=== PATIENT | male | born 2000 | race Caucasian/White ===

== ENCOUNTER 2024-11-05 02:49 | Emergency (ER) | payer SELFPAY ==
[~2024-11-05] VITALS: Ht 175.3 cm; Wt 81.8 kg
[2024-11-05 03:37] LABS: HEMATOCRIT 40.5 % (42.0-52.0); HEMOGLOBIN 13.5 g/dl (13.5-17.5); MEAN CORPUSCULAR HEMOGLOBIN 27.6 pg (27.0-33.0); MEAN CORPUSCULAR HGB CONC 33.3 g/dl (32.0-36.5); MEAN CORPUSCULAR VOLUME 82.8 fl (80.0-96.0); PLATELET COUNT, AUTOMATED 300 10^3/uL (150-450); RED BLOOD COUNT 4.89 10^6/uL (4.30-6.10); WHITE BLOOD COUNT 9.3 10^3/uL (4.0-10.0)
[2024-11-05 03:53] LABS: AMPHETAMINES LEVEL URINE NEGATIVE (NEGATIVE); BARBITURATES URINE NEGATIVE (NEGATIVE); BENZODIAZEPINES URINE NEGATIVE (NEGATIVE); CANNABINOIDS URINE NEGATIVE (NEGATIVE); COCAINE METABOLITE URINE NEGATIVE (NEGATIVE); METHADONE URINE NEGATIVE (NEGATIVE); OPIATES URINE NEGATIVE (NEGATIVE); PHENCYCLIDINE URINE NEGATIVE (NEGATIVE)
[2024-11-05 03:56] LABS: ETHYL ALCOHOL (ETHANOL) < 0.003 % (0.000-0.010)
[2024-11-05 03:57] LABS: ALBUMIN 3.9 G/DL (3.2-5.2); ALKALINE PHOSPHATASE 91 U/L (40-129); ALT/SGPT 18 U/L (7.0-40); AST/SGOT 13 U/L (<34); BILIRUBIN,DIRECT 0.1 MG/DL (<0.4); BILIRUBIN,TOTAL 0.4 MG/DL (0.3-1.2); BLOOD UREA NITROGEN 14 MG/DL (9-23); CALCIUM LEVEL 9.3 MG/DL (8.5-10.1); CARBON DIOXIDE LEVEL 25 MMOL/L (20-31); CHLORIDE LEVEL 109 MMOL/L (98-107); GLOMERULAR FILTRATION RATE > 60.0 (>60); GLUCOSE, FASTING 94 MG/DL (60-100); POTASSIUM SERUM 4.1 MMOL/L (3.5-5.1); SALICYLATE LEVEL < 3.0 MG/DL (<30); SODIUM LEVEL 143 MMOL/L (136-145); TOTAL PROTEIN 6.5 G/DL (5.7-8.2)
[2024-11-05 04:00] LABS: THYROID STIMULATING HORMONE 4.973 uIU/ML (0.55-4.78)
[2024-11-05 08:03] VITALS: BP 120/68; TEMP 97.9; O2SAT 100
[2024-11-05] MEDS ORDERED: HOME MED LIST COMPLETE! XX SCH (09:50)
== END 2024-11-05 12:35 | disposition home or self-care (01) ==
LOC: M ED 02:49
DX: F43.20 Adjustment disorder, unspecified (principal); Z88.0 Allergy status to penicillin; Z88.2 Allergy status to sulfonamides

== ENCOUNTER 2024-11-05 19:18 | Emergency (ER) | payer SELFPAY ==
[~2024-11-05] VITALS: Ht 177.8 cm; Wt 81.8 kg
[2024-11-06 00:19] LABS: BASO % 0.3 % (0.0-1.0); EOS # 0.1 10^3/uL (0.0-0.5); EOS % 1.1 % (0.0-3.0); HEMATOCRIT 39.9 % (42.0-52.0); HEMOGLOBIN 13.6 g/dl (13.5-17.5); LYMPH # 2.5 10^3/uL (1.5-5.0); LYMPH % 28.1 % (24.0-44.0); MEAN CORPUSCULAR HGB CONC 34.1 g/dl (32.0-36.5); MEAN CORPUSCULAR VOLUME 82.1 fl (80.0-96.0); MONO # 0.6 10^3/uL (0.0-0.8); MONO % 6.8 % (2.0-8.0); NEUTROPHILS # 5.6 10^3/uL (1.5-8.5); NEUTROPHILS % 63.6 % (36.0-66.0); PLATELET COUNT, AUTOMATED 300 10^3/uL (150-450); RED BLOOD COUNT 4.86 10^6/uL (4.30-6.10); WHITE BLOOD COUNT 8.8 10^3/uL (4.0-10.0)
[2024-11-06 00:52] LABS: CK-MB VALUE MASS < 1.0 NG/ML (<3.6)
[2024-11-06 00:54] LABS: ALKALINE PHOSPHATASE 92 U/L (40-129); ALT/SGPT 18 U/L (7.0-40); AST/SGOT 14 U/L (<34); BILIRUBIN,TOTAL 0.4 MG/DL (0.3-1.2); BLOOD UREA NITROGEN 14 MG/DL (9-23); CALCIUM LEVEL 9.1 MG/DL (8.5-10.1); CARBON DIOXIDE LEVEL 27 MMOL/L (20-31); CHLORIDE LEVEL 109 MMOL/L (98-107); CPK CREATINE PHOSPHOKINASE 75 U/L (46-171); CREATININE FOR GFR 0.97 MG/DL (0.70-1.30); GLOMERULAR FILTRATION RATE > 60.0 (>60); GLUCOSE, FASTING 95 MG/DL (60-100); MB/CK RELATIVE INDEX 1.33 (< OR =4); SODIUM LEVEL 143 MMOL/L (136-145); TOTAL PROTEIN 6.6 G/DL (5.7-8.2)
[2024-11-06 03:48] LABS: ETHYL ALCOHOL (ETHANOL) < 0.003 % (0.000-0.010)
[2024-11-06 03:49] LABS: SALICYLATE LEVEL < 3.0 MG/DL (<30)
[2024-11-06 03:52] LABS: THYROID STIMULATING HORMONE 3.671 uIU/ML (0.55-4.78)
[2024-11-06] MEDS ORDERED: HOME MED LIST COMPLETE! XX SCH (04:55)
[2024-11-06 08:11] LABS: AMPHETAMINES LEVEL URINE NEGATIVE (NEGATIVE); BARBITURATES URINE NEGATIVE (NEGATIVE); BENZODIAZEPINES URINE NEGATIVE (NEGATIVE); CANNABINOIDS URINE NEGATIVE (NEGATIVE); COCAINE METABOLITE URINE NEGATIVE (NEGATIVE); METHADONE URINE NEGATIVE (NEGATIVE); OPIATES URINE NEGATIVE (NEGATIVE); PHENCYCLIDINE URINE NEGATIVE (NEGATIVE)
[2024-11-06 10:46] VITALS: BP 128/75; TEMP 97; O2SAT 100
[2024-11-07] MEDS ORDERED: ZITHTAB PO (20:29)
== END 2024-11-06 11:07 | disposition home or self-care (01) ==
LOC: EDBD 19:18 → EDSEX 19:18 → M ED 19:18
DX: R45.850 Homicidal ideations (principal); F43.20 Adjustment disorder, unspecified; Z59.00 Homelessness unspecified; Z91.51 Personal history of suicidal behavior; F20.9 Schizophrenia, unspecified; F31.9 Bipolar disorder, unspecified; F90.9 Attention-deficit hyperactivity disorder, unspecified type; F43.10 Post-traumatic stress disorder, unspecified; F32.A Depression, unspecified; F17.200 Nicotine dependence, unspecified, uncomplicated; Z88.0 Allergy status to penicillin; Z88.2 Allergy status to sulfonamides

== ENCOUNTER 2024-11-07 17:26 | Emergency (ER) | payer SELFPAY ==
[~2024-11-07] VITALS: Ht 177.8 cm; Wt 88.0 kg
[2024-11-07] MEDS ORDERED: ZITHTAB PO (20:29)
[2024-11-07 20:34] VITALS: BP 103/87; TEMP 98.8; O2SAT 99
[2024-11-07] MEDS: AZITHROMYCIN 250MG TABLET PO ONE (20:53)
== END 2024-11-07 21:10 | disposition home or self-care (01) ==
LOC: EDBD 17:26 → M ED 17:26
DX: J02.0 Streptococcal pharyngitis (principal); I10 Essential (primary) hypertension; F31.9 Bipolar disorder, unspecified; F20.9 Schizophrenia, unspecified; F90.9 Attention-deficit hyperactivity disorder, unspecified type; F43.10 Post-traumatic stress disorder, unspecified; F17.200 Nicotine dependence, unspecified, uncomplicated; F17.290 Nicotine dependence, other tobacco product, uncomplicated; Z88.0 Allergy status to penicillin; Z88.2 Allergy status to sulfonamides

== ENCOUNTER 2024-11-08 01:17 | Emergency (ER) | payer SELFPAY ==
[~2024-11-08] VITALS: Ht 177.8 cm; Wt 87.9 kg
[~2024-11-08 01:17] MED LIST: ZITHTAB PO
[2024-11-08 01:20] VITALS: BP 152/111; TEMP 98.2; O2SAT 100
== END 2024-11-08 06:15 | disposition left against medical advice (07) ==
LOC: M ED 01:17
DX: Z53.21 Procedure and treatment not carried out due to patient leaving prior to being seen by health care provider (principal)

== ENCOUNTER 2024-12-09 18:17 | Emergency (ER) | payer SELFPAY ==
[~2024-12-09] VITALS: Ht 177.8 cm; Wt 90.2 kg
[2024-12-09 18:22] VITALS: BP 141/95; TEMP 98; O2SAT 100
== END 2024-12-09 21:24 | disposition left against medical advice (07) ==
LOC: M ED 18:17 → EDSEX 18:17 → EDBD 18:17 → M ED 21:24
DX: Z53.21 Procedure and treatment not carried out due to patient leaving prior to being seen by health care provider (principal)

== ENCOUNTER 2024-12-12 19:53 | Inpatient (IN) | payer SELFPAY ==
[~2024-12-12] VITALS: Ht 177.8 cm; Wt 81.6 kg
[2024-12-12] MEDS: NS (Normal Saline) 0.9% 1,000 ML IV ONE (20:28)
[2024-12-12 20:41] LABS: BASO % 0.6 % (0.0-1.0); EOS # 0.1 10^3/uL (0.0-0.5); EOS % 1.1 % (0.0-3.0); HEMATOCRIT 37.6 % (42.0-52.0); HEMOGLOBIN 12.1 g/dl (13.5-17.5); LYMPH # 1.6 10^3/uL (1.5-5.0); LYMPH % 25.1 % (24.0-44.0); MEAN CORPUSCULAR HEMOGLOBIN 26.6 pg (27.0-33.0); MEAN CORPUSCULAR HGB CONC 32.2 g/dl (32.0-36.5); MEAN CORPUSCULAR VOLUME 82.6 fl (80.0-96.0); MONO # 0.5 10^3/uL (0.0-0.8); MONO % 7.5 % (2.0-8.0); NEUTROPHILS # 4.1 10^3/uL (1.5-8.5); NEUTROPHILS % 65.4 % (36.0-66.0); PLATELET COUNT, AUTOMATED 274 10^3/uL (150-450); RED BLOOD COUNT 4.55 10^6/uL (4.30-6.10); WHITE BLOOD COUNT 6.3 10^3/uL (4.0-10.0)
[2024-12-12 21:01] LABS: ETHYL ALCOHOL (ETHANOL) < 0.003 % (0.000-0.010)
[2024-12-12 21:02] LABS: VALPROIC ACID (DEPAKOTE) < 3.0 UG/ML (50.0-100.0)
[2024-12-12 21:03] LABS: ALBUMIN 3.7 G/DL (3.2-5.2); ALKALINE PHOSPHATASE 80 U/L (40-129); ALT/SGPT 26 U/L (7.0-40); AST/SGOT 20 U/L (<34); BILIRUBIN,DIRECT 0.1 MG/DL (<0.4); BILIRUBIN,TOTAL 0.3 MG/DL (0.3-1.2); BLOOD UREA NITROGEN 8 MG/DL (9-23); CALCIUM LEVEL 8.9 MG/DL (8.5-10.1); CARBON DIOXIDE LEVEL 29 MMOL/L (20-31); CHLORIDE LEVEL 105 MMOL/L (98-107); CREATININE FOR GFR 0.84 MG/DL (0.70-1.30); GLOMERULAR FILTRATION RATE > 60.0 (>60); GLUCOSE, FASTING 110 MG/DL (60-100); POTASSIUM SERUM 4.1 MMOL/L (3.5-5.1); SALICYLATE LEVEL < 3.0 MG/DL (<30); SODIUM LEVEL 143 MMOL/L (136-145); TOTAL PROTEIN 6.4 G/DL (5.7-8.2)
[2024-12-12 21:04] LABS: THYROID STIMULATING HORMONE 3.384 uIU/ML (0.55-4.78)
[2024-12-12 21:13] LABS: CPK CREATINE PHOSPHOKINASE 94 U/L (46-171)
[2024-12-12 22:29] LABS: AMPHETAMINES LEVEL URINE NEGATIVE (NEGATIVE)
[2024-12-12 22:30] LABS: BARBITURATES URINE NEGATIVE (NEGATIVE); BENZODIAZEPINES URINE NEGATIVE (NEGATIVE); CANNABINOIDS URINE NEGATIVE (NEGATIVE); COCAINE METABOLITE URINE NEGATIVE (NEGATIVE); METHADONE URINE NEGATIVE (NEGATIVE); OPIATES URINE NEGATIVE (NEGATIVE); PHENCYCLIDINE URINE NEGATIVE (NEGATIVE)
[2024-12-13] MEDS ORDERED: HOME MED LIST COMPLETE! XX SCH (13:00)
[2024-12-13 17:24] VITALS: BP 117/60; TEMP 97.1
[2024-12-13] MEDS ORDERED: MAALOX 30 ML SUSP *UDC PO PRN (20:40)
[2024-12-13] MEDS: traZODone 50 MG TAB PO PRN (20:59)
[2024-12-13] MEDS: diphenhydrAMINE 25MG CAP PO PRN (20:59)
[2024-12-13 21:00] VITALS: BP 124/74
[2024-12-14 06:52] VITALS: BP 116/56; TEMP 98; O2SAT 100
[2024-12-14] MEDS: ACETAMINOPHEN 325 MG TAB PO PRN (08:42)
[2024-12-14] MEDS: ESCITALOPRAM OXALATE 10 MG TAB (LEXAPRO) PO SCH (11:52)
[2024-12-14] MEDS: NICOTINE 21MG/24HR 1 EA TRANSDERMAL TD SCH (11:54)
[2024-12-14 17:28] VITALS: BP 122/64; TEMP 98.3; O2SAT 100
[2024-12-14 19:25] VITALS: BP 121/71; TEMP 97.9; O2SAT 96
[2024-12-14 20:33] LABS: BASO % 0.5 % (0.0-1.0); EOS # 0.1 10^3/uL (0.0-0.5); HEMATOCRIT 36.8 % (42.0-52.0); HEMOGLOBIN 12.1 g/dl (13.5-17.5); LYMPH # 1.9 10^3/uL (1.5-5.0); LYMPH % 31.4 % (24.0-44.0); MEAN CORPUSCULAR HEMOGLOBIN 27.1 pg (27.0-33.0); MEAN CORPUSCULAR HGB CONC 32.9 g/dl (32.0-36.5); MEAN CORPUSCULAR VOLUME 82.5 fl (80.0-96.0); MONO # 0.5 10^3/uL (0.0-0.8); MONO % 8.3 % (2.0-8.0); NEUTROPHILS # 3.5 10^3/uL (1.5-8.5); NEUTROPHILS % 57.6 % (36.0-66.0); PLATELET COUNT, AUTOMATED 256 10^3/uL (150-450); RED BLOOD COUNT 4.46 10^6/uL (4.30-6.10); WHITE BLOOD COUNT 6.1 10^3/uL (4.0-10.0)
[2024-12-14 20:50] LABS: ERYTHROCYTE SEDIMENTATION RATE < 1 mm/hr (0-15)
[2024-12-14 20:55] LABS: C REACTIVE PROTEIN QUANTITATIV < 0.50 MG/DL (<1.0)
[2024-12-14 21:46] LABS: ALBUMIN 3.5 G/DL (3.2-5.2); ALKALINE PHOSPHATASE 79 U/L (40-129); ALT/SGPT 22 U/L (7.0-40); AST/SGOT 13 U/L (<34); BILIRUBIN,TOTAL 0.2 MG/DL (0.3-1.2); BLOOD UREA NITROGEN 9 MG/DL (9-23); CALCIUM LEVEL 8.8 MG/DL (8.5-10.1); CARBON DIOXIDE LEVEL 31 MMOL/L (20-31); CHLORIDE LEVEL 107 MMOL/L (98-107); CREATININE FOR GFR 0.99 MG/DL (0.70-1.30); GLOMERULAR FILTRATION RATE > 60.0 (>60); GLUCOSE, FASTING 90 MG/DL (60-100); MAGNESIUM LEVEL 1.7 MG/DL (1.8-2.4); POTASSIUM SERUM 4.5 MMOL/L (3.5-5.1); SODIUM LEVEL 145 MMOL/L (136-145)
[2024-12-15] MEDS: DOCUSATE SODIUM 100MG CAPSULE PO SCH (03:51)
[2024-12-15] MEDS: MOM 30ML SUSPENSION UDC PO PRN (03:52)
[2024-12-15 06:41] VITALS: BP 107/98; TEMP 97.4; O2SAT 97
[2024-12-15 15:54] VITALS: BP 124/66; TEMP 98; O2SAT 99
[2024-12-16 06:23] VITALS: BP 107/67; TEMP 96.9; O2SAT 100
[2024-12-16 15:52] VITALS: BP 124/78; TEMP 98.1; O2SAT 97
[2024-12-16] MEDS: IBUPROFEN 400MG TAB PO PRN (21:03)
[2024-12-17 06:46] VITALS: BP 107/58; TEMP 97.3; O2SAT 99
[2024-12-17] MEDS ORDERED: LEXA1TAB PO (11:53)
[2024-12-17] MEDS ORDERED: TRAZ-252 PO (11:53)
== END 2024-12-17 13:00 | disposition home or self-care (01) | DRG 754 ==
LOC: M ED 19:53 → EDBD 19:53 → M ED INP 12-13 14:43 → M PSY 12-13 17:18
PROVIDERS: ADMIT Psychiatry & Neurology Psychiatry; ATTEND Psychiatry & Neurology Psychiatry
DX: F32.9 Major depressive disorder, single episode, unspecified (principal); R45.850 Homicidal ideations; Z59.01 Sheltered homelessness; F41.1 Generalized anxiety disorder; Z56.0 Unemployment, unspecified; F17.200 Nicotine dependence, unspecified, uncomplicated; Z91.51 Personal history of suicidal behavior; Z88.0 Allergy status to penicillin; Z88.2 Allergy status to sulfonamides; Z90.49 Acquired absence of other specified parts of digestive tract; R10.9 Unspecified abdominal pain

== ENCOUNTER 2024-12-18 19:52 | Emergency (ER) | payer SELFPAY ==
[~2024-12-18] VITALS: Ht 177.8 cm; Wt 90.4 kg
[~2024-12-18 19:52] MED LIST changes: +LEXA1TAB PO; +TRAZ-252 PO
[2024-12-19 09:21] VITALS: BP 137/82; TEMP 96.9; O2SAT 98
== END 2024-12-19 09:25 | disposition home or self-care (01) ==
LOC: M ED 12-19 08:00
DX: F22 Delusional disorders (principal); Z59.00 Homelessness unspecified; Z63.79 Other stressful life events affecting family and household; Z88.0 Allergy status to penicillin; Z88.2 Allergy status to sulfonamides; Z79.899 Other long term (current) drug therapy

== ENCOUNTER 2024-12-27 08:20 | Observation (INO) | payer SELFPAY ==
[~2024-12-27] VITALS: Ht 177.8 cm; Wt 82.9 kg
[2024-12-27 08:42] LABS: BASO % 0.5 % (0.0-1.0); EOS # 0.1 10^3/uL (0.0-0.5); EOS % 1.6 % (0.0-3.0); HEMATOCRIT 42.9 % (42.0-52.0); HEMOGLOBIN 14.2 g/dl (13.5-17.5); LYMPH % 26.2 % (24.0-44.0); MEAN CORPUSCULAR HEMOGLOBIN 26.5 pg (27.0-33.0); MEAN CORPUSCULAR HGB CONC 33.1 g/dl (32.0-36.5); MONO # 0.7 10^3/uL (0.0-0.8); MONO % 8.6 % (2.0-8.0); NEUTROPHILS # 4.8 10^3/uL (1.5-8.5); NEUTROPHILS % 62.8 % (36.0-66.0); PLATELET COUNT, AUTOMATED 269 10^3/uL (150-450); RED BLOOD COUNT 5.36 10^6/uL (4.30-6.10); WHITE BLOOD COUNT 7.6 10^3/uL (4.0-10.0)
[2024-12-27] MEDS: CHARCOAL ACTIVATED LIQUID 25GM/120ML BTL PO ONE (08:47)
[2024-12-27 09:12] LABS: ETHYL ALCOHOL (ETHANOL) 0.004 % (0.000-0.010)
[2024-12-27 09:14] LABS: ALKALINE PHOSPHATASE 78 U/L (40-129); ALT/SGPT 18 U/L (7.0-40); AST/SGOT 20 U/L (<34); BILIRUBIN,DIRECT 0.1 MG/DL (<0.4); BILIRUBIN,TOTAL 0.4 MG/DL (0.3-1.2); BLOOD UREA NITROGEN 15 MG/DL (9-23); CALCIUM LEVEL 9.2 MG/DL (8.5-10.1); CARBON DIOXIDE LEVEL 22 MMOL/L (20-31); CHLORIDE LEVEL 109 MMOL/L (98-107); GLOMERULAR FILTRATION RATE > 60.0 (>60); GLUCOSE, FASTING 103 MG/DL (60-100); SALICYLATE LEVEL < 3.0 MG/DL (<30); SODIUM LEVEL 143 MMOL/L (136-145); TOTAL PROTEIN 6.8 G/DL (5.7-8.2)
[2024-12-27 09:16] LABS: THYROID STIMULATING HORMONE 2.727 uIU/ML (0.55-4.78)
[2024-12-27 09:32] LABS: CPK CREATINE PHOSPHOKINASE 99 U/L (46-171)
[2024-12-27 14:00] VITALS: BP 132/92; TEMP 98.6; O2SAT 100
[2024-12-27] MEDS ORDERED: LEXA1TAB PO (15:52)
[2024-12-27] MEDS ORDERED: TRAZ-186 PO (15:52)
[2024-12-27] MEDS ORDERED: HOME MED LIST COMPLETE! XX SCH (15:55)
[2024-12-27 20:00] VITALS: BP 137/73; TEMP 97.6; O2SAT 97
[2024-12-28 04:00] VITALS: BP 117/65; TEMP 97.4; O2SAT 96
[2024-12-28] MEDS: ENOXAPARIN 40MG/0.4ML SYRINGE (J1650 PER 10MG) SC SCH (09:00)
[2024-12-28 12:01] VITALS: BP 135/65; TEMP 98.6; O2SAT 100
== END 2024-12-28 14:07 ==
LOC: M ED 08:20 → EDBD 08:20 → M ED INP 08:21 → M MSPAV 13:51
PROVIDERS: ADMIT Student in an Organized Health Care Education/Training Program; ATTEND Student in an Organized Health Care Education/Training Program
DX: R45.851 Suicidal ideations (principal); T43.222A Poisoning by selective serotonin reuptake inhibitors, intentional self-harm, initial encounter; F32.A Depression, unspecified; F41.9 Anxiety disorder, unspecified; Z79.899 Other long term (current) drug therapy; Z88.0 Allergy status to penicillin; Z88.2 Allergy status to sulfonamides

== ENCOUNTER 2024-12-28 13:09 | Inpatient (IN) | payer SELFPAY ==
[~2024-12-28] VITALS: Ht 177.8 cm; Wt 79.5 kg
[~2024-12-28 13:09] MED LIST changes: +TRAZ-186 PO
[2024-12-28] MEDS ORDERED: IBUPROFEN 400MG TAB PO PRN (13:35)
[2024-12-28] MEDS ORDERED: diphenhydrAMINE 25MG CAP PO PRN (13:35)
[2024-12-28] MEDS ORDERED: MOM 30ML SUSPENSION UDC PO PRN (13:35)
[2024-12-28] MEDS ORDERED: OLANZapine ORAL DISINTEGRATING TAB 5MG PO PRN (13:35)
[2024-12-28] MEDS ORDERED: MAALOX 30 ML SUSP *UDC PO PRN (13:35)
[2024-12-28 14:10] VITALS: BP 120/80; TEMP 97.4; O2SAT 98
[2024-12-28] MEDS: traZODone 50 MG TAB PO PRN (20:14)
[2024-12-29 06:31] VITALS: BP 106/70; TEMP 97.2; O2SAT 98
[2024-12-29] MEDS ORDERED: HOME MED LIST COMPLETE! XX SCH (10:20)
[2024-12-30 06:47] VITALS: BP 108/72; TEMP 97.9; O2SAT 100
[2024-12-30] MEDS: ACETAMINOPHEN 325 MG TAB PO PRN (07:30)
[2024-12-30] MEDS: FLUoxetine 20MG CAP PO SCH (10:41)
[2024-12-30 15:33] VITALS: BP 117/75; TEMP 98.1; O2SAT 99
[2024-12-31 06:35] VITALS: BP 105/53; TEMP 97.3; O2SAT 96
[2024-12-31] MEDS: NICOTINE 14 MG/24 HR TRANSDERMAL TD SCH (11:41)
[2024-12-31 17:22] VITALS: BP 141/79; TEMP 97.8; O2SAT 99
[2025-01-01 07:03] VITALS: BP 140/76; TEMP 97.5; O2SAT 98
[2025-01-01] MEDS ORDERED: FLUO-365 PO (07:36)
[2025-01-01] MEDS ORDERED: HYDR-3363 PO (07:36)
== END 2025-01-01 13:35 | disposition home or self-care (01) | DRG 751 ==
LOC: M PSY 14:16
PROVIDERS: ADMIT Psychiatry & Neurology Psychiatry; ATTEND Psychiatry & Neurology Psychiatry
DX: F33.1 Major depressive disorder, recurrent, moderate (principal); F41.9 Anxiety disorder, unspecified; F60.89 Other specific personality disorders; Z91.51 Personal history of suicidal behavior; Z90.49 Acquired absence of other specified parts of digestive tract; Z79.899 Other long term (current) drug therapy; Z88.0 Allergy status to penicillin; Z88.2 Allergy status to sulfonamides; Z65.3 Problems related to other legal circumstances; Z91.52 Personal history of nonsuicidal self-harm; Z59.00 Homelessness unspecified; Z56.0 Unemployment, unspecified

== ENCOUNTER 2025-01-05 02:02 | Emergency (ER) | payer SELFPAY ==
[~2025-01-05] VITALS: Ht 177.8 cm; Wt 88.0 kg
[~2025-01-05 02:02] MED LIST changes: +FLUO-365 PO; +HYDR-3363 PO
[2025-01-05 02:31] LABS: BASO % 0.4 % (0.0-1.0); EOS # 0.1 10^3/uL (0.0-0.5); EOS % 1.3 % (0.0-3.0); HEMATOCRIT 42.7 % (42.0-52.0); HEMOGLOBIN 14.1 g/dl (13.5-17.5); LYMPH # 2.4 10^3/uL (1.5-5.0); LYMPH % 34.2 % (24.0-44.0); MEAN CORPUSCULAR HEMOGLOBIN 27.2 pg (27.0-33.0); MEAN CORPUSCULAR VOLUME 82.4 fl (80.0-96.0); MONO # 0.6 10^3/uL (0.0-0.8); MONO % 7.8 % (2.0-8.0); NEUTROPHILS # 3.9 10^3/uL (1.5-8.5); NEUTROPHILS % 56.2 % (36.0-66.0); PLATELET COUNT, AUTOMATED 276 10^3/uL (150-450); RED BLOOD COUNT 5.18 10^6/uL (4.30-6.10)
[2025-01-05 02:55] LABS: LIPASE 33 U/L (12-53)
[2025-01-05 03:01] LABS: ALBUMIN 4.1 G/DL (3.2-5.2); ALKALINE PHOSPHATASE 82 U/L (40-129); ALT/SGPT 19 U/L (7.0-40); AST/SGOT 11 U/L (<34); BILIRUBIN,DIRECT 0.1 MG/DL (<0.4); BILIRUBIN,TOTAL 0.3 MG/DL (0.3-1.2); BLOOD UREA NITROGEN 17 MG/DL (9-23); CALCIUM LEVEL 10.3 MG/DL (8.5-10.1); CARBON DIOXIDE LEVEL 30 MMOL/L (20-31); CHLORIDE LEVEL 107 MMOL/L (98-107); CREATININE FOR GFR 0.89 MG/DL (0.70-1.30); GLOMERULAR FILTRATION RATE > 60.0 (>60); GLUCOSE, FASTING 90 MG/DL (60-100); POTASSIUM SERUM 4.6 MMOL/L (3.5-5.1); SODIUM LEVEL 143 MMOL/L (136-145); TOTAL PROTEIN 6.8 G/DL (5.7-8.2)
[2025-01-05 09:27] VITALS: BP 126/61; TEMP 97; O2SAT 99
== END 2025-01-05 09:30 | disposition home or self-care (01) ==
LOC: EDSEX 02:02 → M ED 02:02 → EDBD 02:02 → M ED 09:30
DX: R11.2 Nausea with vomiting, unspecified (principal); R19.7 Diarrhea, unspecified; Z79.899 Other long term (current) drug therapy; Z88.0 Allergy status to penicillin; Z88.2 Allergy status to sulfonamides

== ENCOUNTER 2025-01-05 15:24 | Emergency (ER) | payer SELFPAY ==
[~2025-01-05] VITALS: Ht 177.8 cm; Wt 90.2 kg
[2025-01-05 18:35] VITALS: BP 119/81; TEMP 97.6; O2SAT 98
[2025-01-05] MEDS: ONDANSETRON 4MG ORAL DISINTEGRATING TAB PO ONE (18:35)
== END 2025-01-05 18:55 | disposition home or self-care (01) ==
LOC: M ED 15:24
DX: R11.2 Nausea with vomiting, unspecified (principal); F41.9 Anxiety disorder, unspecified; F32.A Depression, unspecified; Z88.0 Allergy status to penicillin; Z88.2 Allergy status to sulfonamides; Z79.899 Other long term (current) drug therapy

== ENCOUNTER 2025-01-07 22:01 | Emergency (ER) | payer SELFPAY ==
[~2025-01-07] VITALS: Ht 177.8 cm; Wt 72.7 kg
[2025-01-08] MEDS: ONDANSETRON 4MG ORAL DISINTEGRATING TAB PO ONE (09:26)
[2025-01-08 11:22] VITALS: BP 113/61; TEMP 97.4; O2SAT 98
== END 2025-01-08 11:24 | disposition home or self-care (01) ==
LOC: M ED 01-08 09:28
DX: R11.0 Nausea (principal); F41.9 Anxiety disorder, unspecified; F32.9 Major depressive disorder, single episode, unspecified; Z88.0 Allergy status to penicillin; Z88.2 Allergy status to sulfonamides